=== PATIENT | female | born 1960 | race Caucasian/White ===

== ENCOUNTER 2018-03-26 14:45 | Emergency (ER) | payer OTHER ==
[2018-03-26] MEDS: KETOROLAC 30 MG INJ IV (18:00)
[2018-03-26 18:05] LABS: WHITE BLOOD COUNT 8.6 10^3/ul (4.8-10.8)
[2018-03-26 18:05] LABS: HEMATOCRIT 36.4 % (37.0-47.0); MEAN CORPUSCULAR HEMOGLOBIN 28.4 pg (29.0-33.0); MEAN CORPUSCULAR VOLUME 86.3 fl (82.0-101.0); MEAN PLATELET VOLUME 9.4 fl (7.4-10.4); PLATELET COUNT 270 10^3/UL (140-415); RED BLOOD COUNT 4.22 10^6/ul (4.20-5.40); RED CELL DISTRIBUTION WIDTH 12.3 % (11.5-14.5)
[2018-03-26 18:07] LABS: ADD MAN DIFF? YES
[2018-03-26 18:09] LABS: ADD UMIC NO; UR ASCORBIC ACID 40 mg/dL (NEGATIVE); UR BILIRUBIN (Dip) NEGATIVE (NEGATIVE); UR BLOOD (Dip) NEGATIVE (NEGATIVE); UR CLARITY CLEAR (CLEAR); UR COLOR COLORLESS (YELLOW); UR GLUCOSE (Dip) NEGATIVE (NEGATIVE); UR KETONES (Dip) NEGATIVE (NEGATIVE); UR LEUKOCYTE ESTERASE (Dip) NEGATIVE Leu/ul (NEGATIVE); UR NITRITE (Dip) NEGATIVE (NEGATIVE); UR SPECIFIC GRAVITY (Dip) 1.004 (1.003-1.030); UR TOTAL PROTEIN (Dip) NEGATIVE (NEGATIVE); UR UROBILINOGEN (Dip) NEGATIVE (NEGATIVE)
[2018-03-26 18:27] LABS: ALANINE AMINOTRANSFERASE 42 IU/L (13-69); ALBUMIN 4.9 g/dl (3.3-4.9); ALKALINE PHOSPHATASE 87 IU/L (42-121); ANION GAP 11 (5-13); ASPARTATE AMINO TRANSFERASE 34 IU/L (15-46); BILIRUBIN,INDIRECT 0.1 mg/dl (0-1.1); BILIRUBIN,TOTAL 0.1 mg/dl (0.2-1.3); BLOOD UREA NITROGEN 11 mg/dl (7-20); CALCIUM 9.8 mg/dl (8.4-10.2); CARBON DIOXIDE 26 mmol/L (21-31); CHLORIDE 90 mmol/L (97-110); CREATININE 0.72 mg/dl (0.44-1.00); Estimated GFR > 60 mL/min (>60); GLUCOSE 143 mg/dl (70-220); LIPASE 110 U/L (23-300); SODIUM 127 mmol/L (135-144); TOTAL PROTEIN 8.4 g/dl (6.1-8.1)
[2018-03-26 19:59] LABS: ACANTHOCYTES 1+ (0-0); BAND NEUTROPHILS #M 0.1 10^3/ul (0.0-0.6); BAND NEUTROPHILS % (M) 2 % (0-4); BASOPHIL #M 0.1 10^3/ul (0.0-0.0); BASOPHILS % (M) 2 % (0-2); BURR CELLS 1+ (0-0); EOSINOPHILS % (M) 18 % (0-7); LYMPHOCYTES % (M) 24 % (15-51); MONOCYTE #M 0.4 10^3/ul (0.3-0.9); MONOCYTES % (M) 5 % (0-11); OVALOCYTES 1+ (0-0); PLASMAC%(M) 1 % (0); PLATELET MORPHOLOGY COMMENT @See below; POIKILOCYTOSIS 1+ (0-0); REACTIVE LYMPHOCYTES #M 0.3 10^3/ul (0.0-0.0); REACTIVE LYMPHOCYTES% (M) 4 % (0-0); SCHISTOCYTES 1+ (0-0); SEG NEUT #M 3.9 10^3/ul (1.6-7.5); SEGMENTED NEUTROPHILS (M) % 45 % (39-77); SMUDGE%M 18 % (0-0); SPHEROCYTES 1+ (0-0)
== END 2018-03-26 19:50 | disposition home or self-care (01) ==
LOC: E/R 14:45
DX: R10.11 Right upper quadrant pain (principal); E11.9 Type 2 diabetes mellitus without complications; I10 Essential (primary) hypertension; Z79.82 Long term (current) use of aspirin; Z79.84 Long term (current) use of oral hypoglycemic drugs
CPT/HCPCS: 36415; 74176; 80053; 81003; 83690; 85025; 96372; 99285-25

== ENCOUNTER 2018-08-06 10:15 | Emergency (ER) | payer OTHER ==
[2018-08-06] MEDS: IBUPROFEN 600 MG TAB PO (11:08)
[2018-08-06 11:20] LABS: ADD MAN DIFF? NO
[2018-08-06 11:25] LABS: WHITE BLOOD COUNT 8.3 10^3/ul (4.8-10.8)
[2018-08-06 11:25] LABS: BASOPHILS % 0.5 % (0.0-2.0); EOSINOPHILS # 1.8 10^3/ul (0.0-0.5); EOSINOPHILS % 21.9 % (0.0-7.0); HEMATOCRIT 37.8 % (37.0-47.0); HEMOGLOBIN 12.5 g/dl (12.0-16.0); LYMPHOCYTES # 1.7 10^3/ul (0.8-2.9); LYMPHOCYTES % 20.5 % (15.0-51.0); MEAN CORPUSCULAR HEMOGLOBIN 28.3 pg (29.0-33.0); MEAN CORPUSCULAR HGB CONC 33.1 g/dl (32.0-37.0); MEAN CORPUSCULAR VOLUME 85.5 fl (82.0-101.0); MEAN PLATELET VOLUME 9.5 fl (7.4-10.4); MONOCYTE # 0.4 10^3/ul (0.3-0.9); MONOCYTES % 5.3 % (0.0-11.0); NEUTROPHIL # 4.3 10^3/ul (1.6-7.5); NEUTROPHILS % 51.6 % (39.0-77.0); PLATELET COUNT 267 10^3/UL (140-415); RED BLOOD COUNT 4.42 10^6/ul (4.20-5.40); RED CELL DISTRIBUTION WIDTH 12.3 % (11.5-14.5)
[2018-08-06 11:29] LABS: ADD UMIC NO; UR ASCORBIC ACID NEGATIVE (NEGATIVE); UR BILIRUBIN (Dip) NEGATIVE (NEGATIVE); UR BLOOD (Dip) NEGATIVE (NEGATIVE); UR CLARITY CLEAR (CLEAR); UR COLOR YELLOW (YELLOW); UR GLUCOSE (Dip) NEGATIVE (NEGATIVE); UR KETONES (Dip) NEGATIVE (NEGATIVE); UR LEUKOCYTE ESTERASE (Dip) NEGATIVE Leu/ul (NEGATIVE); UR NITRITE (Dip) NEGATIVE (NEGATIVE); UR SPECIFIC GRAVITY (Dip) 1.006 (1.003-1.030); UR TOTAL PROTEIN (Dip) NEGATIVE (NEGATIVE); UR UROBILINOGEN (Dip) NEGATIVE (NEGATIVE)
[2018-08-06 11:42] LABS: ANION GAP 14 (5-13); BLOOD UREA NITROGEN 10 mg/dl (7-20); CALCIUM 9.5 mg/dl (8.4-10.2); CARBON DIOXIDE 28 mmol/L (21-31); CHLORIDE 93 mmol/L (97-110); CREATININE 0.57 mg/dl (0.44-1.00); Estimated GFR > 60 mL/min (>60); GLUCOSE 92 mg/dl (70-220); POTASSIUM 3.9 mmol/L (3.5-5.1); SODIUM 135 mmol/L (135-144)
== END 2018-08-06 13:09 | disposition home or self-care (01) ==
LOC: FTE 13:09
DX: R10.2 Pelvic and perineal pain (principal); I10 Essential (primary) hypertension; E11.9 Type 2 diabetes mellitus without complications; Z79.82 Long term (current) use of aspirin; Z79.84 Long term (current) use of oral hypoglycemic drugs
CPT/HCPCS: 36415; 76830; 76856; 80048; 81003; 85025; 99284-25